=== PATIENT | male | born 1970 | race Two or more races ===

== ENCOUNTER 2016-09-19 07:44 | Emergency (ER) | payer MEDICAID ==
[~2016-09-19] VITALS: Ht 190.5 cm; Wt 81.6 kg
[2016-09-19 07:52] VITALS: BP 177/121
== END 2016-09-19 08:24 | disposition home or self-care (01) ==
LOC: ER 07:46
DX: I10 Essential (primary) hypertension (principal); F17.200 Nicotine dependence, unspecified, uncomplicated
CPT/HCPCS: 99281; A4606; Z7610; Z7502

== ENCOUNTER 2022-12-11 14:54 | Emergency (ER) | payer MEDICAID ==
[~2022-12-11] VITALS: Ht 190.5 cm; Wt 83.9 kg
[2022-12-11 15:34] VITALS: BP 131/87
--- NOTE | 2022-12-11 15:48 | NUR ---
Patient discharged to home in stable condition. Written and verbal after care instructions given. Patient verbalizes understanding of instruction.
== END 2022-12-11 15:49 | disposition home or self-care (01) ==
LOC: ER 15:01
DX: H93.13 Tinnitus, bilateral (principal); I10 Essential (primary) hypertension; F17.200 Nicotine dependence, unspecified, uncomplicated; Z60.2 Problems related to living alone

== ENCOUNTER 2023-06-29 13:29 | Emergency (ER) | payer MEDICAID, OTHER ==
[~2023-06-29] VITALS: Ht 190.5 cm; Wt 86.2 kg
[2023-06-29 13:51] VITALS: TEMP 98.8
[2023-06-29] MEDS ORDERED: ACETAMINOPHEN ES 500 MG TABLET PO ONE (14:30)
[2023-06-29] MEDS ORDERED: CYCLOBENZAPRINE 10 MG TABLET PO ONE (14:30)
[2023-06-29] MEDS ORDERED: LIDOCAINE 5% (PATCH) 1 EA PATCH TP SCH (14:30)
[2023-06-29] MEDS ORDERED: KETOROLAC TROMETHAMINE 15 MG/ML VIAL IV ONE (14:30)
[2023-06-29] MEDS ORDERED: KETOROLAC TROMETHAMINE 15 MG/ML VIAL ONE (14:33)
[2023-06-29] MEDS ORDERED: LIDOCAINE 5% (PATCH) 1 EA PATCH TP ONE (14:34)
[2023-06-29] MEDS ORDERED: CYCLOBENZAPRINE 10 MG TABLET ONE (14:34)
[2023-06-29] MEDS ORDERED: ACETAMINOPHEN ES 500 MG TABLET ONE (14:34)
[2023-06-29 14:50] LABS: BASOPHILS % (AUTO) 0.6 % (0.0-2.0); EOSINOPHILS # (AUTO) 0.1 K/uL (0.0-0.7); EOSINOPHILS % (AUTO) 0.8 % (0.0-6.0); HEMATOCRIT 46 % (39-51); HEMOGLOBIN 15.5 g/dL (13.5-17.5); LYMPHOCYTES # (AUTO) 1.5 K/uL (0.8-4.8); LYMPHOCYTES % (AUTO) 20.5 % (20.0-44.0); MEAN CORPUSCULAR HEMOGLOBIN 32 PG (26.0-33.0); MEAN CORPUSCULAR HGB CONC 34 g/dl (31.0-36.0); MEAN CORPUSCULAR VOLUME 96 fL (80-96); MONOCYTES # (AUTO) 0.7 K/uL (0.1-1.30); NEUTROPHILS # (AUTO) 4.9 K/uL (1.8-8.9); NEUTROPHILS % (AUTO) 68.1 % (43.0-81.0); PLATELET COUNT (AUTO) 265 K/uL (150-450); RED BLOOD CELL COUNT(AUTO) 4.81 MIL/uL (4.5-6.0); RED CELL DISTRIBUTION WIDTH 12.4 % (11.5-15.0); WHITE BLOOD COUNT (AUTO) 7.1 K/uL (4.3-11.0)
[2023-06-29] MEDS ORDERED: KETOROLAC TROMETHAMINE 15 MG/ML VIAL IM ONE (15:00)
[2023-06-29 15:05] LABS: CALCIUM, SERUM 9.2 mg/dL (8.5-10.1); CREATININE 0.5 mg/dL (0.6-1.3); POTASSIUM 4.1 mmol/L (3.5-5.1)
[2023-06-29 17:41] VITALS: BP 127/71
[2023-06-29 17:46] LABS: APPEARANCE,URINE CLEAR (CLEAR); BILIRUBIN,URINE NEGATIVE (NEGATIVE); BLOOD, URINE NEGATIVE Ery/uL (NEGATIVE); COLOR,URINE YELLOW (YELLOW); KETONES,URINE NEGATIVE (NEGATIVE); LEUKOCYTE ESTERASE ,URINE NEGATIVE (NEGATIVE); NITRITE, URINE NEGATIVE (NEGATIVE); PROTEIN,URINE NEGATIVE (NEGATIVE); UGLUCOSE NEGATIVE (NEGATIVE); UROBILINOGEN,URINE 0.2 EU/dL (0.2)
[2023-06-29] MEDS ORDERED: CYCL10TA9 PO (17:56)
[2023-06-29 18:05] VITALS: O2SAT 98
== END 2023-06-29 18:06 | disposition home or self-care (01) ==
LOC: ER 13:34
DX: R10.12 Left upper quadrant pain (principal); I10 Essential (primary) hypertension; F17.200 Nicotine dependence, unspecified, uncomplicated; Z60.2 Problems related to living alone
CPT/HCPCS: 99285; 74176; 96372; 85025; 80048; 81003; 36415; J1885

== ENCOUNTER 2023-08-16 11:30 | Emergency (ER) | payer OTHER ==
[~2023-08-16] VITALS: Ht 190.5 cm; Wt 83.0 kg
[~2023-08-16 11:30] MED LIST: CYCL10TA9 PO
[2023-08-16] MEDS ORDERED: AMLO-213 PO ×2 (12:02→12:11)
[2023-08-16] MEDS ORDERED: LOSA100T31 PO ×2 (12:02→12:11)
[2023-08-16 12:23] VITALS: BP 157/110; TEMP 98; O2SAT 97
== END 2023-08-16 12:24 | disposition home or self-care (01) ==
LOC: ER 11:36
DX: Z76.0 Encounter for issue of repeat prescription (principal); I10 Essential (primary) hypertension; Z60.2 Problems related to living alone